=== PATIENT | male | born 1970 | race Caucasian/White ===

== ENCOUNTER 2019-05-24 13:58 | Emergency (ER) | payer SELFPAY ==
[~2019-05-24] VITALS: Ht 172.7 cm; Wt 75.0 kg
[~2019-05-24 13:58] MED LIST: NAPR-985 PO
[2019-05-24 14:01] VITALS: BP 163/95; PULSE 85; RESP 16; Ht 172.7 cm; Wt 75.0 kg
[2019-05-24] MEDS ORDERED: IBUPROFEN 600 MG TAB PO ONE (15:30)
== END 2019-05-24 16:45 | disposition home or self-care (01) ==
LOC: FTE 13:58
DX: M25.561 Pain in right knee (principal); M25.562 Pain in left knee; R51 Headache; M54.5 Low back pain
CPT/HCPCS: 72100; 73562